=== PATIENT | female | born 2000 | race Caucasian/White ===

== ENCOUNTER 2023-05-28 14:10 | Inpatient (IN) | payer BC, SELFPAY ==
[2023-05-28 14:25] VITALS: BMI 37.0
[2023-05-28 14:27] VITALS: BP 108/76; PULSE 94; RESP 15; TEMP 36.9; O2SAT 96
--- NOTE | 2023-05-28 15:01 | PC.NURSE ---
Patient arrived to unit from [facility] in [place], [place]. She states she went to the hospital because she began having thoughts of harming herself by cutting or by running her car off of the road. She states the last time she attempted suicide was in 2019 and she tried to overdose on medication. Patient says she was going to [facility] in [place] for outpatient psych tx, but that she stopped going 3 months ago because of billing difficulties and her current primary provider was working on referring her to someone else. 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 Patient denies current si, but says it comes and goes. She lists abilify, metformin, and prazosin (as needed) as her medications. She does say she was adopted, her parents were drug addicts, and that her biological mother attempted suicide. Patient says her adoptive family and are very supportive, but that her family is at odds with her at the moment because he did not drive her to the hospital due to having just taken a muscle relaxer. She says this has added to her stress. Patient anxious and tearful during assessment.
[2023-05-28] MEDS: hyDROXYzine 25 mg Capsule 50 MG PO (15:33)
[2023-05-28] MEDS: prazosin 1 mg Capsule PO (20:23)
[2023-05-28 20:45] VITALS: BP 105/75; PULSE 93; RESP 18; TEMP 36.8; O2SAT 97
[2023-05-29 06:00] VITALS: RESP 16
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
[2023-05-29] MEDS: metformin XR 500 MG Tablet PO (08:03)
[2023-05-29] MEDS: ARIPiprazole 10 mg Tablet PO (08:03)
[2023-05-29 14:00] VITALS: BP 112/75; PULSE 100; RESP 14; TEMP 36.6; O2SAT 97
[2023-05-29] MEDS: paliperidone ER 3 mg Tablet PO (15:00)
[2023-05-29 20:11] VITALS: BP 105/74; PULSE 75; RESP 17; TEMP 37; O2SAT 95
[2023-05-29] MEDS: prazosin 1 mg Capsule PO (20:20)
[2023-05-30 06:00] VITALS: BP 109/73; PULSE 95; RESP 15; TEMP 36.6; O2SAT 97
--- NOTE | 2023-05-30 07:50 | P.NPUPN_ITS ---
Subjective NPU Subjective: Patient presented today reporting that she is feeling better. She reports that she is less tearful and feeling like things are much better than with the Abilify. We discussed working with the social work team in the morning to make sure she has appropriate follow-up scheduled. As well as the likelihood of discharge in the next 48 hours if she continues the current trend of improvement. Mental Status Exam MSE Comments: This is an obese white female in hospital scrubs with adequate grooming and eye contact. No abnormal movements except for mild psychomotor retardation. Cooperative with exam in mild to moderate distress. Speech was slightly decreased rate and volume. Mood described as better and less tearful, affect congruent. Thought process organized. Thought content: Patient denied suicidal or homicidal ideation, there were no delusions reported or noted, she denied any auditory or visual hallucinations. Attention and concentration appear intact and memory appeared reliable but none were formally tested. She is alert and oriented x 3. Insight and judgment appear fair and impulse control is limited. Vitals/I&O/Wt Last Vital Signs Temp 97.9 F 05/30/23 06:00 Pulse 95 05/30/23 06:00 Resp 15 05/30/23 06:00 BP 109/73 05/30/23 06:00 Pulse Ox 97 05/30/23 06:00 O2 Del Method Room Air 05/30/23 06:00 Weight last 48 hrs Weight 92.986 kg Weight 92.986 kg Weight 86.183 kg A&P Assessment and plan (1) Major depressive disorder, recurrent: (2) PTSD (post-traumatic stress disorder): (3) Suicidal ideation: Plan This is a 23-year-old white female with a long history of mental health issues going back to her early teenage years with significant history of trauma and genetic loading for addiction issues who presents with suicidal thinking and 2- month trial of Abilify that has been ineffective and assisting with her mood and suicidal thoughts. 1. Continue current medication except discontinued Abilify and started Invega 3 mg p.o. daily. 2. Continue every 15 minute checks for safety. 3. Encourage individual, group and milieu therapy. 4. Get collateral information. Involuntary Hold Information 96 Hour Hold: 96 Hour Involuntary Admission: No Attestations NPU Medical Necessity Statement*: Inpatient hospitalization is medically necessary and the clinically appropriate intervention at this time. We will monitor medications and make changes as indicated. Likely length of stay 1-3 days. Coding Level of Care Code Acute Code for Chg Fwd Diagnoses Major depressive disorder, recurrent F33.9 PTSD (post-traumatic stress disorder) F43.10 Suicidal ideation R45.851
[2023-05-30] MEDS: metformin XR 500 MG Tablet PO (08:21)
[2023-05-30] MEDS: paliperidone ER 3 mg Tablet PO (08:21)
[2023-05-30 14:00] VITALS: BP 112/72; PULSE 99; RESP 15; TEMP 36.8; O2SAT 97
[2023-05-30] MEDS: prazosin 1 mg Capsule PO (20:05)
[2023-05-30 20:23] VITALS: BP 92/56; PULSE 85; RESP 18; O2SAT 96
[2023-05-31 06:00] VITALS: BP 110/74; PULSE 108; RESP 18; O2SAT 98
[2023-05-31] MEDS: paliperidone ER 3 mg Tablet PO (08:03)
[2023-05-31] MEDS: metformin XR 500 MG Tablet PO (08:03)
[2023-05-31 11:15] VITALS: BP 110/74; PULSE 108; RESP 18; O2SAT 98
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
[2023-05-31 14:00] VITALS: BP 112/73; PULSE 98; RESP 16; TEMP 36.7; O2SAT 96
== END 2023-05-31 14:27 | disposition home or self-care (01) | DRG 885 ==
PROVIDERS: Admitting Provider Psychiatry & Neurology Psychiatry; Visit Provider Psychiatry & Neurology Psychiatry
DX: F33.9 Major depressive disorder, recurrent, unspecified (principal); R45.851 Suicidal ideations; F43.10 Post-traumatic stress disorder, unspecified; Z62.812 Personal history of neglect in childhood; Z62.810 Personal history of physical and sexual abuse in childhood; Z62.811 Personal history of psychological abuse in childhood; Z91.51 Personal history of suicidal behavior; F17.290 Nicotine dependence, other tobacco product, uncomplicated; Z81.8 Family history of other mental and behavioral disorders; Z81.3 Family history of other psychoactive substance abuse and dependence; E28.2 Polycystic ovarian syndrome
CPT/HCPCS: 97150; 97165